=== PATIENT | female | born 1990 | race Caucasian/White ===

== ENCOUNTER 2016-09-03 21:45 | Emergency (ER) | payer OTHER ==
[2016-09-03 22:00] VITALS: BP 121/65; PULSE 69; TEMP 98.5; BMI 27.3
[2016-09-03] MEDS ORDERED: ONDANSETRON 4 MG/2 ML VIAL IVPB ONE (22:32)
[2016-09-03] MEDS ORDERED: SODIUM CHLORIDE 1,000 ML IV STA (22:32)
--- NOTE | 2016-09-03 22:32 | PDOC ---
History of Present Illness - General History Source: Patient Exam Limitations: No Limitations - History of Present Illness Initial Comments: 09/03/16 22:48 The patient is a 25-year-old female, with no significant past medical history, who presents to the ED with an epigastric burning sensation today. The patient states that the pain is constant and worsened after eating. She also reports feeling gassy and bloated. Pt threw up twice today; no blood was noted. The patient denies any fever, chills, diarrhea, shortness of breath, or chest pain. <An Pichardo - Last Filed: 09/03/16 22:48> - General History Source: Patient Exam Limitations: No Limitations <Megan Carbone - Last Filed: 09/04/16 03:34> - General Chief Complaint: Pain Stated Complaint: ABD PAIN/VOMITING Time Seen by Provider: 09/03/16 22:18 Past History <An Pichardo - Last Filed: 09/03/16 22:48> - Psycho/Social/Smoking Cessation Hx Suicidal Ideation: No Smoking History: Current every day smoker Number of Cigarettes Smoked Daily: 20 Information on smoking cessation initiated: No Hx Alcohol Use: No Drug/Substance Use Hx: No <Megan Carbone - Last Filed: 09/04/16 03:34> - Past Medical History Allergies/Adverse Reactions: Allergies Allergy/AdvReac Type Severity Reaction Status Date / Time Penicillins Allergy Verified 09/03/16 21:57 Home Medications: Ambulatory Orders Dicyclomine HCl [Bentyl -] 10 mg PO Q6H #28 capsule 09/04/16 Ondansetron [Zofran *Odt*] 8 mg SL BID PRN #10 od.tablet 09/04/16 Pantoprazole Sodium [Protonix] 40 mg PO DAILY #30 tablet. 09/04/16 Review of Systems - Review of Systems Able to Perform ROS?: Yes Comments:: 09/03/16 22:48 GENERAL/CONSTITUTIONAL: No: fever, chills, weakness, loss of appetite. HEAD, EYES, EARS, NOSE AND THROAT: No: change in vision, ear pain, discharge, sore throat, throat swelling. CARDIOVASCULAR: No: chest pain, lightheadedness, palpitations, syncope RESPIRATORY: No: cough, shortness of breath, wheezing, hemoptysis, stridor. GASTROINTESTINAL: No: nausea, vomiting, abdominal cramping, diarrhea, rectal bleeding, constipation. Yes: nausea, vomiting, abdominal pain GENITOURINARY: No: dysuria, hematuria, frequency, urgency, flank pain. MUSCULOSKELETAL: No: back pain, neck pain, joint pain, muscle swelling or pain SKIN AND BREASTS: No: lesions, pallor, rash or easy bruising. NEUROLOGIC: No: headache, vertigo, paresthesias, weakness ENDOCRINE: No: unexplained weight gain or loss HEMATOLOGIC/LYMPHATIC: No: anemia, easy bleeding, swelling nodes <An Pichardo - Last Filed: 09/03/16 22:48> *Physical Exam - Vital Signs Last Vital Signs Temp Pulse Resp BP Pulse Ox 98.5 F 69 14 121/65 98 09/03/16 21:58 09/03/16 21:58 09/03/16 21:58 09/03/16 21:58 09/03/16 21:58 - Physical Exam Comments: 09/03/16 22:49 GENERAL: The patient is in no acute distress. HEAD: Normal with no signs of trauma. EYES: PERRLA, EOMI, sclera anicteric, conjunctiva clear. ENT: Ears normal, nares patent, oropharynx clear without exudates. Moist mucous membranes. NECK: Normal range of motion, supple without lymphadenopathy, JVD, or masses. LUNGS: Breath sounds equal, clear to auscultation bilaterally. No wheezes, and no crackles. HEART:Regular rate and rhythm, normal S1 and S2 without murmur, rub or gallop. ABDOMEN: Soft, nontender, normoactive bowel sounds. No guarding, no rebound. EXTREMITIES: Normal range of motion, no edema. No clubbing or cyanosis. No erythema, or tenderness. NEUROLOGICAL: Cranial nerves II through XII grossly intact. Normal speech. No focal neurological deficits. MUSCULOSKELETAL: Back non-tender to palpation, no CVA tenderness SKIN: Warm, Dry, normal turgor, no rashes or lesions noted. <An Pichardo - Last Filed: 09/03/16 22:48> - Vital Signs Last Vital Signs Temp Pulse Resp BP Pulse Ox 98.5 F 69 14 121/65 98 09/03/16 21:58 09/03/16 21:58 09/03/16 21:58 09/03/16 21:58 09/03/16 21:58 <Megan Carbone - Last Filed: 09/04/16 03:34> ED Treatment Course - LABORATORY CBC & Chemistry Diagram: 09/03/16 23:20 09/03/16 23:20 <Megan Carbone - Last Filed: 09/04/16 03:34> Medical Decision Making - Medical Decision Making 09/03/16 22:32 A portion of this note was documented by scribe services under my direction. I have reviewed the details of the note, within reason, and agree with the documentation with the following case summary and management plan written by me. Nursing documentation reviewed and incorporated into medical decision making 09/03/16 22:59 This is an otherwise healthy 25 yo F with no past medical history presenting to the ER with a complaint of abdominal pain Symptoms began 4 days ago No change in diet No ill contacts No recent travels Pt has not had pain like this in the past Pt complains of RUQ and RLQ pain which is constant Pain is described as burning No radiation No alcohol use DD: appendicitis, cholecystitis, , obstruction Will do labs will give Zofran and morphine for pain Will do CT of the abdomen and pelvis Will re assess 09/04/16 03:05 09/04/16 03:06 Laboratory Tests 09/03/16 09/03/16 09/03/16 23:20 23:20 23:20 WBC 5.8 Hgb 13.4 Hct 40.0 Plt Count 263 Neutrophils % 40.9 L Lymphocytes % 44.2 H BUN 6 L Creatinine 0.7 Serum , Qual Negative Ct of the abd anbd pelvis: Nml bowels appendix nml No intestinal obstruction IUD noted Will discharge to home Follow up [facility] PMD Return to the ER for any other concerns or complaints <Megan Carbone - Last Filed: 09/04/16 03:34> *DC/Admit/Observation/Transfer - Attestations Scribe Attestion: 09/03/16 22:50 Documentation prepared by An Pichardo, acting as medical resident for Megan Carbone MD. <An Pichardo - Last Filed: 09/03/16 22:48> - Discharge Dispostion Admit: No <Megan Carbone - Last Filed: 09/04/16 03:34> Diagnosis at time of Disposition: Abdominal pain Qualifiers: Abdominal location: upper abdomen, unspecified Qualified Code(s): R10.10 - Upper abdominal pain, unspecified - Prescriptions Prescriptions: Dicyclomine HCl [Bentyl -] 10 mg PO Q6H #28 capsule Pantoprazole Sodium [Protonix] 40 mg PO DAILY #30 tablet. Ondansetron [Zofran *Odt*] 8 mg SL BID PRN #10 od.tablet PRN Reason: Nausea - Referrals Referrals: Rayna Saravia MD [Staff Physician] - Fabiola Hammer [Primary Care Provider] - Paxton Suarez MD [Staff Physician] - - Patient Instructions Printed Discharge Instructions: DI for Abdominal Pain-Adult Additional Instructions: Illenny Thank you for coming to the ER today Please modify your diet, eat small meals, drink fluids as much as tolerable Please monitor yourself for fevers or chills Please take medications as prescribed you must return to the ER for persistent or worsening symptoms you must follow up with your primary care physician within 1 week you must also follow up with the painter and paperhanger apprentice dennis chi for possible additional testing - Post Discharge Activity Work/School Note: Back to Work
[2016-09-03] MEDS ORDERED: morphine CARPU-JECT 4 MG/1 ML DISP.SYRIN IVPUSH ONE (22:59)
[2016-09-03] MEDS ORDERED: ONDANSETRON 4 MG/2 ML VIAL ONE (23:31)
[2016-09-03] MEDS ORDERED: morphine CARPU-JECT 4 MG/1 ML DISP.SYRIN ONE (23:31)
[2016-09-03 23:32] LABS: EOSINOPHIL 2.4 % (0-4.5); MCH 30.6 pg (25.7-33.7); MCHC 33.5 g/dl (32.0-36.0); MEAN CELL VOLUME 91.2 fl (80-96); MEAN PLT VOLUME 9.4 fl (7.5-11.1); NEUTROPHILS 40.9 % (42.8-82.8); PLATELET COUNT 263 K/MM3 (134-434); WHITE BLOOD COUNT 5.8 K/mm3 (4.0-10.0)
[2016-09-04 00:03] LABS: AMYLASE 38 U/L (25-115); ANION GAP 9 (8-16); BILIRUBIN,TOTAL 0.3 mg/dL (0.2-1.0); CALCIUM 8.8 mg/dL (8.5-10.1); CO2 28 mmol/L (21-32); CREATININE 0.7 mg/dL (0.55-1.02); GLUCOSE,RANDOM 88 mg/dL (74-106); SGOT/AST 14 U/L (15-37); SGPT/ALT 15 U/L (12-78); TOT PROT 7.7 g/dl (6.4-8.2)
[2016-09-04 00:04] LABS: ALK PHOS 150 U/L (45-117)
== END 2016-09-04 03:58 | disposition home or self-care (01) ==
LOC: JER 21:45
PROC: 3E033NZ Introduction of Analgesics, Hypnotics, Sedatives into Peripheral Vein, Percutaneous Approach (ICD-10-PCS; principal; 2016-09-03)
PROC: 3E033GC Introduction of Other Therapeutic Substance into Peripheral Vein, Percutaneous Approach (ICD-10-PCS; 2016-09-03)
DX: F10.10 Alcohol abuse, uncomplicated (principal); F17.210 Nicotine dependence, cigarettes, uncomplicated
CPT/HCPCS: 36415; 74177-TC; 80053; 82150; 83690; 84703; 85025; 96374; 96375; 99281-25

== ENCOUNTER 2016-10-13 01:43 | Emergency (ER) | payer OTHER ==
[2016-10-13 02:44] VITALS: BP 108/67; PULSE 73; TEMP 97.4; BMI 25.8
[2016-10-13 03:38] LABS: BASOPHIL 0.8 % (0-2.0); EOSINOPHIL 4.1 % (0-4.5); MCHC 33.5 g/dl (32.0-36.0); MEAN CELL VOLUME 92.5 fl (80-96); MEAN PLT VOLUME 9.2 fl (7.5-11.1); NEUTROPHILS 44.7 % (42.8-82.8); PLATELET COUNT 285 K/MM3 (134-434); RDW 14.5 % (11.6-15.6); WHITE BLOOD COUNT 7.4 K/mm3 (4.0-10.0)
[2016-10-13 04:03] LABS: ALBUMIN 3.4 g/dl (3.4-5.0); ALK PHOS 138 U/L (45-117); ANION GAP 8 (8-16); BILIRUBIN,TOTAL 0.1 mg/dL (0.2-1.0); CALCIUM 8.8 mg/dL (8.5-10.1); CO2 28 mmol/L (21-32); CREATININE 0.7 mg/dL (0.55-1.02); GLUCOSE,RANDOM 93 mg/dL (74-106); SGOT/AST 11 U/L (15-37); SGPT/ALT 14 U/L (12-78); TOT PROT 6.8 g/dl (6.4-8.2)
[2016-10-13 04:22] LABS: URINE APPEARANCE CLEAR; URINE BILIRUBIN NEGATIVE (NEGATIVE); URINE BLOOD NEGATIVE (NEGATIVE); URINE COLOR STRAW; URINE GLUCOSE (UA) NEGATIVE (NEGATIVE); URINE KETONE NEGATIVE (NEGATIVE); URINE LEUK ESTERASE NEGATIVE (NEGATIVE); URINE NITRITE NEGATIVE (NEGATIVE); URINE PROTEIN NEGATIVE (NEGATIVE); URINE UROBILINOGEN NEGATIVE E.U./dl (0.2-1.0)
[2016-10-13] MEDS ORDERED: KETOROLAC TROMETHAMINE 30 MG/1 ML VIAL IM ONE (04:51)
[2016-10-13] MEDS ORDERED: KETOROLAC TROMETHAMINE 30 MG/1 ML VIAL ONE (04:54)
--- NOTE | 2016-10-13 05:05 | PDOC ---
History of Present Illness - General Chief Complaint: Back Pain Stated Complaint: BACK PAIN Time Seen by Provider: 10/13/16 02:15 - History of Present Illness Initial Comments: 10/13/16 05:05 CHIEF COMPLAINT: back pain HISTORY OF PRESENT ILLNESS: 25 yo F with no significant PMH presents to ED with back pain x 3 weeks. Patient denies any trauma or recent injury. She denies loss of bowel or bladder function or loss of sensation. She also c/o cough and nausea x 2 weeks. She has not seen a doctor for any of her complaints, nor has she taken any medications for them. She denies fever, diarrhea, or rectal bleeding. No recent travel or sick contacts. PAST MEDICAL HISTORY: Denies past medical history FAMILY HISTORY: Denies SOCIAL HISTORY: Current smoker, 1 pack daily. Marijuana use daily. Denies alcohol. SURGICAL HISTORY: Denies ALLERGIES: Penicillin REVIEW OF SYSTEMS General/Constitutional: Denies fever or chills. Denies weakness, weight change. HEENT: Denies change in vision. Denies ear pain or discharge. Denies sore throat. Cardiovascular: Denies chest pain or shortness of breath. Respiratory: Cough x 2 weeks. Denies wheezing, or hemoptysis. Gastrointestinal: Vomiting x 2 weeks. Denies diarrhea or constipation. Denies rectal bleeding. Genitourinary: Denies dysuria, frequency, or change in urination. Musculoskeletal: Denies joint or muscle swelling or pain. Denies neck or back pain. Skin and breasts: Denies rash or easy bruising. Neurologic: Denies headache, vertigo, loss of consciousness, or loss of sensation. PHYSICAL EXAM General Appearance: Well-appearing, appropriately dressed. No apparent distress. HEENT: EOMI, PERRLA, normal ENT inspection, normal voice, TMs normal, pharynx normal. No conjunctival pallor. No photophobia, scleral icterus. Respiratory/Chest: Lungs CTAB. Cardiovascular: RRR. S1, S2. Gastrointestinal/Abdominal: Normal bowel sounds. Abdomen soft, non-distended. No tenderness or rebound tenderness. No organomegaly, pulsatile mass, guarding, hernia, hepatomegaly, splenomegaly. Musculoskeletal/Extremities: Tenderness to lower back bilaterally. No saddle anesthesia, no loss of sensation to legs bilaterally. Normal inspection. FROM of all extremities, normal capillary refill. No tenderness to extremities, pedal edema, swelling, erythema or deformity. Integumentary: Appropriate color, dry, warm. No cyanosis, erythema, jaundice or rash Neurologic: turbine mechanic II-XII intact. Fully oriented, alert. Appropriate mood/affect. Motor strength 5/5. No appreciable EOM palsy, facial droop or sensory deficit. 10/13/16 06:23 Past History - Past Medical History Allergies/Adverse Reactions: Allergies Allergy/AdvReac Type Severity Reaction Status Date / Time Penicillins Allergy Verified 10/13/16 02:13 Home Medications: Ambulatory Orders Cyclobenzaprine HCl 7.5 mg PO HS #5 tablet 10/13/16 Naproxen 250 mg PO BID #14 tablet 10/13/16 Oxycodone HCl/Acetaminophen [Percocet 5-325 mg Tablet] 1 - 2 tab PO Q4H - Psycho/Social/Smoking Cessation Hx Suicidal Ideation: No Smoking History: Never smoked Have you smoked in the past 12 months: No Number of Cigarettes Smoked Daily: 20 Information on smoking cessation initiated: No Hx Alcohol Use: No Drug/Substance Use Hx: No *Physical Exam - Vital Signs Last Vital Signs Temp Pulse Resp BP Pulse Ox 97.4 F L 73 20 108/67 100 10/13/16 02:13 10/13/16 02:13 10/13/16 02:13 10/13/16 02:13 10/13/16 02:13 ED Treatment Course - LABORATORY CBC & Chemistry Diagram: 10/13/16 03:28 10/13/16 03:28 - ADDITIONAL ORDERS Additional order review: Laboratory Results 10/13/16 10/13/16 04:04 03:28 Sodium 141 Potassium 4.0 Chloride 105 Carbon Dioxide 28 Anion Gap 8 BUN 10 D Creatinine 0.7 Creat Clearance w eGFR > 60 Random Glucose 93 Calcium 8.8 Total Bilirubin 0.1 L D AST 11 L D ALT 14 Alkaline Phosphatase 138 H Total Protein 6.8 Albumin 3.4 Urine Color Straw Urine Appearance Clear Urine pH 6.0 Ur Specific [place] 1.009 Urine Protein Negative Urine Glucose (UA) Negative Urine Ketones Negative Urine Blood Negative Urine Nitrite Negative Urine Bilirubin Negative Urine Urobilinogen Negative Ur Leukocyte Esterase Negative Urine HCG, Qual Negative 10/13/16 03:28 RBC 4.21 MCV 92.5 MCHC 33.5 RDW 14.5 MPV 9.2 Neutrophils % 44.7 Lymphocytes % 41.2 H Monocytes % 9.2 Eosinophils % 4.1 Basophils % 0.8 Medical Decision Making - Medical Decision Making 10/13/16 06:23 25 yo F with no significant PMH presents to ED with back pain x 3 weeks. -CBC, CMP -UA, Ucx, upreg Labs unremarkable. -30 mg IM Toradol Patient reassessed; still c/o of "some pain" to lower bakc. -5 mg cyclobenzaprine, patient's states he will drive her home. Patient states she is hungry and thirsty at this time. Patient given crackers and orange juice and is sitting up eating. -250 mg Naproxen -7.5 mg cyclobenzaprine above scripts sent to pharm. Advised patient to take meds as prescribed and not to drive or operate machinery while taking cyclobenzaprine. Advised patient to f/u with ortho by the end of the week for possible MRI; referral provided. Advised patient of signs and symptoms for return to ER. Patient and verbalized understanding and agree to plan. *DC/Admit/Observation/Transfer Diagnosis at time of Disposition: Back pain Qualifiers: Back pain location: low back pain Chronicity: chronic Back pain laterality: unspecified Sciatica presence: unspecified whether sciatica present Qualified Code(s): M54.5 - Low back pain - Discharge Dispostion Admit: No - Prescriptions Prescriptions: Cyclobenzaprine HCl 7.5 mg PO HS #5 tablet Naproxen 250 mg PO BID #14 tablet - Referrals Referrals: Fabiola Hammer A [Primary Care Provider] - - Patient Instructions Printed Discharge Instructions: DI for Low Back Pain Additional Instructions: Please take medications as prescribed; do not drive or operate machinery while taking the medication cyclobenzaprine. If you experience any loss of bowel or bladder function, loss of sensation or numbness or tingling to your legs, or any new or worsening symptoms, please return to the ER. Por favor, tome los medicamentos segn lo prescrito; no moneja ni opere maquinaria mientras est tomando la medicacin cyclobenzaprine. Si experimenta cualquier prdida de funcin intestinal o vesical, prdida de sensacin o entumecimiento u hormigueo en las piernas, o cualquier nuevo o empeoramiento de los sntomas, por favor regrese a la neil de emergencias. Print Language: PARAGUAYAN
[2016-10-13] MEDS ORDERED: CYCLOBENZAPRINE HCL 10 MG TABLET (FP) PO ONE (05:18)
[2016-10-13] MEDS ORDERED: CYCLOBENZAPRINE HCL 10 MG TABLET (FP) ONE (05:27)
--- NOTE | 2016-10-13 06:04 | PDOC ---
*Physical Exam - Vital Signs Last Vital Signs Temp Pulse Resp BP Pulse Ox 97.4 F L 73 20 108/67 100 10/13/16 02:13 10/13/16 02:13 10/13/16 02:13 10/13/16 02:13 10/13/16 02:13 ED Treatment Course - LABORATORY CBC & Chemistry Diagram: 10/13/16 03:28 10/13/16 03:28 - ADDITIONAL ORDERS Additional order review: Laboratory Results 10/13/16 10/13/16 04:04 03:28 Sodium 141 Potassium 4.0 Chloride 105 Carbon Dioxide 28 Anion Gap 8 BUN 10 D Creatinine 0.7 Creat Clearance w eGFR > 60 Random Glucose 93 Calcium 8.8 Total Bilirubin 0.1 L D AST 11 L D ALT 14 Alkaline Phosphatase 138 H Total Protein 6.8 Albumin 3.4 Urine Color Straw Urine Appearance Clear Urine pH 6.0 Ur Specific [place] 1.009 Urine Protein Negative Urine Glucose (UA) Negative Urine Ketones Negative Urine Blood Negative Urine Nitrite Negative Urine Bilirubin Negative Urine Urobilinogen Negative Ur Leukocyte Esterase Negative Urine HCG, Qual Negative 10/13/16 03:28 RBC 4.21 MCV 92.5 MCHC 33.5 RDW 14.5 MPV 9.2 Neutrophils % 44.7 Lymphocytes % 41.2 H Monocytes % 9.2 Eosinophils % 4.1 Basophils % 0.8 - Medications Given in the ED: ED Medications Discontinued Medications Generic Name Dose Route Start Last Admin Trade Name Freq PRN Reason Stop Dose Admin Cyclobenzaprine HCl 5 mg 10/13/16 05:18 10/13/16 05:30 Flexeril - PO 10/13/16 05:19 5 mg ONCE ONE Administration Ketorolac Tromethamine 30 mg 10/13/16 04:51 10/13/16 05:00 Toradol Injection - IM 10/13/16 04:52 30 mg ONCE ONE Administration Medical Decision Making - Medical Decision Making 10/13/16 06:04 agree with care from [facility] *DC/Admit/Observation/Transfer Diagnosis at time of Disposition: Back pain Qualifiers: Back pain location: low back pain Chronicity: chronic Back pain laterality: unspecified Sciatica presence: unspecified whether sciatica present Qualified Code(s): M54.5 - Low back pain - Prescriptions Prescriptions: Cyclobenzaprine HCl 7.5 mg PO HS #5 tablet Naproxen 250 mg PO BID #14 tablet - Referrals Referrals: Fabiola Hammer [Primary Care Provider] - - Patient Instructions Printed Discharge Instructions: DI for Low Back Pain Additional Instructions: Please take medications as prescribed; do not drive or operate machinery while taking the medication cyclobenzaprine. If you experience any loss of bowel or bladder function, loss of sensation or numbness or tingling to your legs, or any new or worsening symptoms, please return to the ER. Por favor, tome los medicamentos segn lo prescrito; no moneja ni opere maquinaria mientras est tomando la medicacin cyclobenzaprine. Si experimenta cualquier prdida de funcin intestinal o vesical, prdida de sensacin o entumecimiento u hormigueo en las piernas, o cualquier nuevo o empeoramiento de los sntomas, por favor regrese a la neil de emergencias. Print Language: TAJIK - Post Discharge Activity
== END 2016-10-13 06:18 | disposition home or self-care (01) ==
LOC: JER 01:43
PROC: 3E0233Z Introduction of Anti-inflammatory into Muscle, Percutaneous Approach (ICD-10-PCS; principal; 2016-10-13)
DX: M54.5 Low back pain (principal)
CPT/HCPCS: 36415; 80053; 81003; 84703; 85025; 99282-25

== ENCOUNTER 2017-07-16 20:46 | Emergency (ER) | payer OTHER ==
[2017-07-16] MEDS ORDERED: MAG HYDROX/AL HYDROX/SIMETH 30 ML UNIT-DOSE CUP PO ONE (20:56)
[2017-07-16] MEDS ORDERED: ONDANSETRON 4 MG/2 ML VIAL IVPUSH ONE (20:56)
--- NOTE | 2017-07-16 21:04 | PDOC ---
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 States her pain which is pressure like, started in the epigastrium now 10/10 associated with nausea and vomiting today, with 6 episodes of vomiting. States was constipated for a few days but has a normal BM today. States pain started after having soda. She reports vomiting with any thing that she eats. No prior episode of this pain, no aggravating or alleviating factors. Denies fever, chills, dysuria LMP 1 week ago PMD: pmhx: psych PSHx: neg ALL: PCN GENERAL/CONSTITUTIONAL: [No fever or chills. No weakness. No weight change.] HEAD, EYES, EARS, NOSE AND THROAT: [No change in vision. No ear pain or discharge. No sore throat.] CARDIOVASCULAR: [No chest pain or shortness of breath.] RESPIRATORY: [No cough, wheezing, or hemoptysis.] GASTROINTESTINAL: (+) nausea, vomiting, diarrhea or constipation. No rectal bleeding.] GENITOURINARY: [No dysuria, frequency, or change in urination.] MUSCULOSKELETAL: [No joint or muscle swelling or pain. No neck or back pain.] SKIN AND BREASTS: [No rash or easy bruising.] NEUROLOGIC: [No headache, vertigo, loss of consciousness, or loss of sensation.] PSYCHIATRIC: [No depression or anxiety.] ENDOCRINE: [No increased thirst. No abnormal weight change.] HEMATOLOGIC/LYMPHATIC: [No anemia, easy bleeding, or history of blood clots.] ALLERGIC/IMMUNOLOGIC: [No hives or skin allergy. No latex allergy.] GENERAL: [The patient is awake, alert, and fully oriented, in moderate distress. ] HEAD: [Normal with no signs of trauma.] EYES: [Pupils equal, round and reactive to light, extraocular movements intact, sclera anicteric, conjunctiva clear.] ENT: [Ears normal, nares patent, oropharynx clear without exudates. Moist mucous membranes.] NECK: [Normal range of motion, supple without lymphadenopathy, JVD, or masses.] LUNGS: [Breath sounds equal, clear to auscultation bilaterally. No wheezes, and no crackles.] HEART: [Regular rate and rhythm, normal S1 and S2 without murmur, rub.] ABDOMEN: [Soft, generalized tender, most in the epigastrum, normoactive bowel sounds. No guarding, no rebound. No masses.] EXTREMITIES: [Normal range of motion, no edema. No clubbing or cyanosis. No cords, erythema, or tenderness.] NEUROLOGICAL: [Cranial nerves II through XII grossly intact. Normal speech, normal gait.] PSYCH: [Normal mood, normal affect.] SKIN: [Warm, Dry, normal turgor, no rashes or lesions noted.] 07/17/17 08:36 Past History - Past Medical History Allergies/Adverse Reactions: Allergies Allergy/AdvReac Type Severity Reaction Status Date / Time Penicillins Allergy Verified 07/16/17 21:38 Home Medications: Ambulatory Orders Trazodone HCl 50 mg PO BID 07/16/17 Famotidine [Pepcid -] 20 mg PO DAILY #30 tablet 07/17/17 - Suicide/Smoking/Psychosocial Hx Smoking History: Current every day smoker Have you smoked in the past 12 months: No Number of Cigarettes Smoked Daily: 20 Hx Alcohol Use: No Drug/Substance Use Hx: No ED Treatment Course - LABORATORY CBC & Chemistry Diagram: 07/16/17 22:14 07/16/17 22:14 Medical Decision Making - Medical Decision Making 07/16/17 21:10 Patient is a 26 year old female with 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 Most likely gastritis but will r/o other abd pathalogy. labs, pepcid, zofran, maalox, ivf re-assess Patient initially states that she was feeling better but when evaluated by the attending complain of more pain and not improved. CT scan of abdomen and pelvis ordered with by mouth and IV contrast 07/17/17 03:34 Labs revealed no acute findings CT scan with no acute findings Patient tolerating by mouth. I discussed the physical exam findings, ancillary test results and final diagnoses with the patient. I answered all of the patient's questions. The patient was satisfied with the care received and felt comfortable with the discharge plan and treatment plan. The Patient agrees to follow up with the primary care physician within 24-72 hours. *DC/Admit/Observation/Transfer Diagnosis at time of Disposition: Abdominal pain Qualifiers: Abdominal location: generalized Qualified Code(s): R10.84 - Generalized abdominal pain - Discharge Dispostion Disposition: HOME Condition at time of disposition: Stable - Prescriptions Prescriptions: Famotidine [Pepcid -] 20 mg PO DAILY #30 tablet - Referrals - Patient Instructions Printed Discharge Instructions: DI for Abdominal Pain-Adult Additional Instructions: Your Discharge Instructions: You must call primary care physician within 24 hours to arrange follow-up. Return to the Emergency Department with any new, persistent or worsening symptoms, for fever, chills, SOB, dizziness or any other concerning changes that may occur. Take some Maalox for her symptoms if they return. - Post Discharge Activity
[2017-07-16] MEDS ORDERED: FAMOTIDINE IV 20 MG/12 ML VIAL IVPUSH ONE (21:05)
[2017-07-16] MEDS ORDERED: SODIUM CHLORIDE 0.9% 1000 ML INFUS.BAG IV ONE (21:12)
[2017-07-16 21:40] VITALS: BP 130/66; PULSE 72; TEMP 97.7; BMI 25.0
[2017-07-16] MEDS ORDERED: FAMOTIDINE IV 20 MG/12 ML VIAL IVPUSH SCH (22:00)
[2017-07-16] MEDS ORDERED: MAG HYDROX/AL HYDROX/SIMETH 30 ML UNIT-DOSE CUP ONE (22:01)
[2017-07-16] MEDS ORDERED: FAMOTIDINE 20 MG/50 ML IVPB 20 MG/50 ML MG IVPB ONE (22:01)
[2017-07-16] MEDS ORDERED: ONDANSETRON 4 MG/2 ML VIAL ONE (22:01)
[2017-07-16 22:18] LABS: BASO % 0.2 % (0-2.0); EOS # 0.1 # (0-4.5); EOS % 0.8 % (0-4.5); LYMPH # 0.9 (8-40); MCH 30.6 pg (25.7-33.7); MCHC 33.4 g/dl (32.0-36.0); MEAN CELL VOLUME 91.7 fl (80-96); MEAN PLT VOLUME 9.7 fl (7.5-11.1); MONO # 0.6 # (3.8-10.2); NEUT # 7.2 # (42.8-82.8); NEUT % 81.7 % (42.8-82.8); PLATELET COUNT 255 K/MM3 (134-434); RDW 14.2 % (11.6-15.6); WHITE BLOOD COUNT 8.8 K/mm3 (4.0-10.0)
[2017-07-16 22:33] LABS: URINE APPEARANCE CLEAR; URINE BILIRUBIN NEGATIVE (NEGATIVE); URINE BLOOD 1+ (NEGATIVE); URINE COLOR YELLOW; URINE GLUCOSE (UA) NEGATIVE (NEGATIVE); URINE KETONE TRACE (NEGATIVE); URINE LEUK ESTERASE NEGATIVE (NEGATIVE); URINE NITRITE NEGATIVE (NEGATIVE); URINE PROTEIN NEGATIVE (NEGATIVE); URINE UROBILINOGEN NEGATIVE mg/dL (0.2-1.0)
[2017-07-16 22:42] LABS: URINE MUCUS RARE; URINE RBC 2 /hpf (0-3); URINE WBC 1 /hpf (3-5)
[2017-07-16 22:55] LABS: ALBUMIN 3.8 g/dl (3.4-5.0); ANION GAP 8 (8-16); BILIRUBIN,TOTAL 0.4 mg/dL (0.2-1.0); CALCIUM 8.9 mg/dL (8.5-10.1); CO2 26 mmol/L (21-32); CREATININE 0.6 mg/dL (0.55-1.02); GLUCOSE,RANDOM 82 mg/dL (74-106); SGOT/AST 10 U/L (15-37); SGPT/ALT 14 U/L (12-78); TOT PROT 7.2 g/dl (6.4-8.2)
[2017-07-16 22:56] LABS: ALK PHOS 125 U/L (45-117)
--- NOTE | 2017-07-17 02:07 | PDOC ---
*Physical Exam - Vital Signs Last Vital Signs Temp Pulse Resp BP Pulse Ox 97.7 F 72 18 130/66 100 07/16/17 20:46 07/16/17 20:46 07/16/17 20:46 07/16/17 20:46 07/16/17 20:46 ED Treatment Course - LABORATORY CBC & Chemistry Diagram: 07/16/17 22:14 07/16/17 22:14 - ADDITIONAL ORDERS Additional order review: Laboratory Results 07/16/17 07/16/17 22:20 22:14 Sodium 138 Potassium 3.9 Chloride 104 Carbon Dioxide 26 Anion Gap 8 BUN 10 Creatinine 0.6 Creat Clearance w eGFR > 60 Random Glucose 82 Calcium 8.9 Total Bilirubin 0.4 D AST 10 L ALT 14 Alkaline Phosphatase 125 H Total Protein 7.2 Albumin 3.8 Lipase 109 Beta HCG, Quant < 1.0 Urine Color Yellow Urine Appearance Clear Urine pH 5.0 Ur Specific [place] 1.026 Urine Protein Negative Urine Glucose (UA) Negative Urine Ketones Trace H Urine Blood 1+ H Urine Nitrite Negative Urine Bilirubin Negative Urine Urobilinogen Negative Urine WBC (Auto) 1 Urine RBC (Auto) 2 Ur Epithelial Cells Rare Urine Mucus Rare 07/16/17 22:14 RBC 4.45 MCV 91.7 MCHC 33.4 RDW 14.2 MPV 9.7 Neutrophils % 81.7 D Lymphocytes % 10.4 D Monocytes % 6.9 Eosinophils % 0.8 D Basophils % 0.2 - Medications Given in the ED: ED Medications Discontinued Medications Generic Name Dose Route Start Last Admin Trade Name Pawanq PRN Reason Stop Dose Admin Al Hydroxide/Mg Hydroxide 30 ml 07/16/17 20:56 07/16/17 22:14 Mylanta Oral Suspension - PO 07/16/17 20:57 30 ml ONCE ONE Administration Famotidine 20 mg in 12 mls @ 144 mls/hr 07/16/17 21:05 07/16/17 22:14 Pepcid 20 Mg/12 Ml Push IVPUSH 07/16/17 21:09 144 mls/hr ONCE ONE Administration Ondansetron HCl 4 mg 07/16/17 20:56 07/16/17 22:14 Zofran Injection IVPUSH 07/16/17 20:57 4 mg ONCE ONE Administration Sodium Chloride 1,000 ml 07/16/17 21:12 07/16/17 22:14 Normal Saline - IV 07/16/17 21:13 1,000 ml ONCE ONE Administration Medical Decision Making - Medical Decision Making 07/17/17 02:06 Pt seen by the Advanced Practice Provider under my direct supervision Ancillary studies reviewed I agree with plan as outlined by the Advanced Practice Provider *DC/Admit/Observation/Transfer Diagnosis at time of Disposition: Abdominal pain Qualifiers: Abdominal location: generalized Qualified Code(s): R10.84 - Generalized abdominal pain - Discharge Dispostion Disposition: HOME Condition at time of disposition: Stable - Prescriptions Prescriptions: Famotidine [Pepcid -] 20 mg PO DAILY #30 tablet - Referrals - Patient Instructions Printed Discharge Instructions: DI for Abdominal Pain-Adult Additional Instructions: Your Discharge Instructions: You must call primary care physician within 24 hours to arrange follow-up. Return to the Emergency Department with any new, persistent or worsening symptoms, for fever, chills, SOB, dizziness or any other concerning changes that may occur. Take some Maalox for her symptoms if they return. - Post Discharge Activity - Attestations Physician Attestion: 07/18/17 04:29 I, Dr. Emily Maldonado MD, attest that this document has been prepared under my direction and personally reviewed by me in its entirety. I further attest, that it accurately reflects all work, treatment, procedures and medical decision -making performed by me.
[2017-07-17 11:32] LABS: URINE LEUK ESTERASE Negative (NEGATIVE)
== END 2017-07-17 06:34 | disposition home or self-care (01) ==
LOC: JER 20:46
PROC: 3E033GC Introduction of Other Therapeutic Substance into Peripheral Vein, Percutaneous Approach (ICD-10-PCS; principal; 2017-07-16)
DX: R10.84 Generalized abdominal pain (principal)
CPT/HCPCS: 36415; 74177-TC; 80053; 81003; 81015; 83690; 84702; 85025; 99285-25